=== PATIENT | male | born 1950 | race Caucasian/White ===

== ENCOUNTER 2020-08-12 09:56 | Outpatient (CLI) | payer MEDICARE, SELFPAY ==
[2020-08-12 11:12] LABS: Basophils Percent Auto 0.5 % (0.2-1.2); Eosinophils Absolute Auto 0.2 K/mm3 (0-0.3); Eosinophils Percent Auto 2.3 % (0-4.4); Hematocrit 43.4 % (42.0-52.0); Hemoglobin 14.5 g/dL (14.0-18.0); Immature Granulocyte Absolute 0.01 K/mm3 (0.00-0.031); Immature Granulocyte Percent A 0.2 % (0-0.5); Lymphocytes Absolute Auto 1.66 K/mm3 (0.9-3.2); Lymphocytes Percent Auto 25.2 % (18.3-44.2); Mean Corpuscular HGB Conc 33.4 g/dl (32-36); Mean Corpuscular Hemoglobin 31.3 pg (26-34); Mean Corpuscular Volume 93.7 fl (80-100); Mean Platelet Volume 9.1 fl (7.4-10.4); Monocytes Absolute Auto 0.4 K/mm3 (0.1-0.6); Monocytes Percent Auto 6.4 % (2.6-8.5); Neutrophils Absolute Auto 4.3 K/mm3 (1.3-6.7); Neutrophils Percent Auto 65.4 % (45.5-73.1); Platelet Count Result 269 k/mm3 (150-375); Red Blood Count 4.63 M/mm3 (4.6-6.20); Red Cell Distribution Width 12.3 % (11.5-14.5); White Blood Count 6.6 K/mm3 (4.5-10.0)
[2020-08-12 11:18] LABS: Albumin Level 4.4 g/dL (3.5-5.1); Urine Cotinine NEGATIVE
[2020-08-12 11:21] LABS: Anion Gap 9 mmol/L (8-16); Blood Urea Nitrogen 18 mg/dL (9-20); Calcium 9.8 mg/dL (8.4-10.2); Carbon Dioxide 32 mmol/L (22-30); Chloride 103 mmol/L (98-107); Estimated Glomerular Filt Rate 60; Glucose 89 mg/dL (75-110); Potassium 3.9 mmol/L (3.4-5.0); Sodium 144 mmol/L (137-145)
[2020-08-12 11:22] LABS: Hemoglobin A1C 5.1 % (<5.7)
== END 2020-08-12 09:57 | disposition home or self-care (01) ==
PROVIDERS: Anesthesiology; PCP Internal Medicine Geriatric Medicine; Visit Provider Orthopaedic Surgery
DX: M17.0 Bilateral primary osteoarthritis of knee (principal); Z79.899 Other long term (current) drug therapy; Z01.818 Encounter for other preprocedural examination
CPT/HCPCS: 36415; 80048; 80307; 82040; 83036; 85025; 86850; 86900; 86901; 87081

== ENCOUNTER 2020-08-22 00:40 | Outpatient (CLI) | payer MEDICARE, SELFPAY ==
[2020-08-22 20:27] LABS: SARS-CoV-2 RNA PCR Negative
== END 2020-08-22 00:41 | disposition home or self-care (01) ==
LOC: ANHCOVIDDT 00:40
PROVIDERS: PCP Internal Medicine Geriatric Medicine; Visit Provider Orthopaedic Surgery
DX: Z01.812 Encounter for preprocedural laboratory examination (principal); Z20.828 Contact with and (suspected) exposure to other viral communicable diseases
CPT/HCPCS: 87635; C9803; U0003

== ENCOUNTER 2020-08-25 00:54 | Day surgery (SDC) | payer MEDICARE, SELFPAY ==
[2020-08-12 10:24] VITALS: BP 162/90; PULSE 66; RESP 20; TEMP 37.2; O2SAT 98; BMI 33.3
[2020-08-25] VITALS (11 sets, daily range): BP systolic 106–167; BP diastolic 59–95; PULSE 60–85; RESP 12–20; TEMP 36.3–36.8; O2SAT 92–100
--- NOTE | ~2020-08-25 | XR_ITS ---
EXAMINATION: XR knee RT 2V DATE: 08/25/2020 10:41 INDICATION: Postoperative evaluation following right total knee arthroplasty. TECHNIQUE: Anteroposterior and lateral views of the right knee were obtained. COMPARISON: None. FINDINGS: Right total knee arthroplasty with patellar resurfacing appears well seated and in near anatomic alig nment. No fractures identified. Expected postoperative subcutaneous and intra-articular gas. IMPRESSION: 1. Right total knee arthroplasty, negative for postoperative purposes. Reviewed, dictated and finalized at location A. NOLOGY APPLICATIONS CONSULTANT
[2020-08-25] MEDS: ACETAMINOPHEN 500 MG TABLET 1000 MG PO ×3 (06:55→22:51)
[2020-08-25] MEDS: LACTATED RINGERS 1,000 ML 30 ML IV CONT ×2 (06:55→10:22)
[2020-08-25] MEDS: TRANEXAMIC ACID 1,000MG/ISO100 1,000 MG/100 ML BAG 200 MG IVPB (06:56)
[2020-08-25] MEDS: KETOROLAC 15 MG/ML VIAL (*BKC) IV PUSH ×3 (06:56→18:27)
--- NOTE | 2020-08-25 07:10 | WPDANESEPPF ---
Anes - Initial Pre Proc Eval Procedure: Operation Date: 08/25/20 07:30 Proposed Procedures p Right Total Knee Arthroplasty - Alexi Barcenas MD Date/Time: 08/25/20 07:10 Surgeon: Alexi Barcenas MD Pre Op Diagnosis: OA Right Knee Patient Data Age: 70 Gender: M Height: 1.83 m Weight: 111.3 kg Last Vital Signs Temp 37.2 C 08/12/20 10:24 Pulse 66 08/12/20 10:24 Resp 20 08/12/20 10:24 BP 162/90 H 08/12/20 10:24 Pulse Ox 98 08/12/20 10:24 Allergies Allergy/AdvReac Type Severity Reaction Status Date / Time No Known Allergies Allergy Mild Verified 08/25/20 06:20 Home Medications Medication Instructions Recorded Confirmed Type aspirin 81 mg tablet,delayed 81 mg PO DAILY 05/15/20 08/25/20 History release atorvastatin 20 mg tablet 20 mg PO DAILY 05/15/20 08/25/20 History cholecalciferol (vitamin D3) 1,250 1,250 mcg PO WEEKLY 05/15/20 08/25/20 History mcg (50,000 unit) capsule diclofenac sodium 75 mg 75 mg PO BID 05/15/20 08/25/20 History tablet,delayed release omega-3 fatty acids 1,000 mg 1,200 mg PO DAILY 05/15/20 08/25/20 History capsule lisinopril-hydrochlorothiazide 1 tablet PO DAILY 08/12/20 08/25/20 History tadalafil 20 mg PO PRN 08/12/20 08/25/20 History rivaroxaban 10 mg tablet 10 mg PO DAILY #13 tablet 08/19/20 08/19/20 Rx Patient hx anesthesia problems: none Family hx anesthesia problems: none PMFSH Past Medical History Medical History (Updated 08/25/20 @ 07:14 by Ever Rueda MD) BMI 34.0-34.9,adult Coronary artery disease Degenerative arthritis of knee, bilateral Hypercholesterolemia Hypertension Obesity Surgical History Surgical History H/O knee surgery left knee - arthroscopy - Dr. Barcenas Previous back surgery 2000 Family History Family History Mother Cancer Father Heart disease Social History Social History Smoking status: Former smoker Tobacco type: cigarettes Second hand tobacco smoke exposure: No Additional smoking assessment comments: STATES 1/2 TO 1PK/DAY/20YRS QUIT 2018 Alcohol intake: current Drinks per week: 6 Substance use: never Living arrangements: with family Gender identity (if verbalized by the patient): Male Spiritual care concerns: No Anes - Eval Final PreProcedure Day of Procedure 08/25/20 07:10 Patient weight: obese Heart: regular rate and rhythm Lungs: clear to auscultation and normal air movement Airway: Mallampati scale class II Neurological: alert and oriented Last oral intake: >/= 8 hours ASA classification: III Emergent: no Anesthetic plan: proceed Anesthesia type and monitoring: regional spinal Informed Consent: The patient's anesthetic plan and its attendant risks and benefits were discussed with the patient/family/POA. Questions were solicited and answers provided to the satisfaction of the patient/family/POA.
--- NOTE | 2020-08-25 07:13 | WPDHPUPDATE1 ---
History and Physical Update Update Date/Time: 08/25/20 07:13 History and Physical has been reviewed, including an updated exam of the patient. There are NO changes in the patient's condition. Risks, benefits, and alternatives have been discussed and questions answered. Patient agrees to proceed with procedure.
[2020-08-25] MEDS: ceFAZolin 2 GM/D5W 50 ML 2 GM/50 ML BAG IVPB ×3 (07:34→22:52)
--- NOTE | 2020-08-25 07:36 | WPDANESPNB ---
Anes - Peripheral Nerve Block Date/Time: 08/25/20 07:36 I have discussed with the patient/family/POA the placement of a peripheral nerve block for post-operative pain management, including associated risks, benefits, complications, and side effects. Alternative methods of post-operative analgesia were detailed. Questions were solicited and answers provided to the satisfaction of the patient/family/POA. Time-Out: A pre-procedural Time-Out was completed immediately before starting the procedure and confirmed: Patient Identification, Site, Procedure, Patient Position and the Availability of Requisite Equipment. Clinical Indications: Acute post-operative pain management requested by the operative surgeon. Nerve Block Insertion Note Anes-nerve block: adductor canal (30cc) right Patient position: supine Skin prep: chlorhexidine Needle: 22 gauge, stimulating, insulated echogenic needle. Needle length: 80 mm Technique: ultrasound Technique comment: in plane Injectate: bupivacaine 0.25% with epi 5 mcg/ml Observations: tolerated well Complications: none Procedure start time:: 725 Procedure end time:: 730
[2020-08-25] MEDS: GENTAMICIN BONE CEMENT REFOBACIN 1 EACH TOPICAL (09:20)
[2020-08-25] MEDS: ceFAZolin SODIUM 1 GM VIAL IV PUSH (09:29)
--- NOTE | 2020-08-25 10:17 | P.OP_ITS ---
Procedure Note - Detailed Date of procedure: 08/25/20 Pre-op diagnosis: OA Right Knee Post-op diagnosis: same Procedure performed: Right total knee replacement Description of procedure: The patient was identified and proper site identified. In the preop holding area the anesthesia team performed a right sub sartorial block after which the patient was taken to the operating room and transferred to the OR table positioning supine taking care to pad the torso and extremities. After a spinal anesthetic was administered, a nonsterile tourniquet was placed high on the right thigh. The right lower extremity was prepped and draped in the usual sterile fashion. The extremity was exsanguinated and with the knee flexed tourniquet was inflated to 300 mmHg remaining up for approximately 75 minutes. An anterior midline incision was made and a mid vastus approach was used. Infra and suprapatellar fat pads were excised. Patella was resected leaving 15 mm thickness and prepared for the 34 thin, round three peg component. Using the intramedullary guide the distal femur was cut in the proper orientation for the size 72.5 femoral component. Using the extramedullary guide the tibia was cut perpendicular to the long axis protecting collateral ligaments and popliteal structures. It was sized to a 79. Flexion and extension gaps were balanced. Trial reduction was undertaken and the weight-bearing line was noted to passed through the center of the joint. Proximal tibia was drilled and punched in the proper orientation for the real component. Trial components were removed. The bone surfaces were washed with pulsatile lavage and dried. The real components were cemented simultaneously. The knee was held in extension and the patella held clamped until the cement had cured. Excess cement was removed from the joint. After trialing it was determined that the 10 mm insert gave full range of motion from 0-120 degrees of flexion and the patella tracked in the femoral groove with no lift-off. After final lavage the joint the real 10 E poly insert was placed and secured with a locking bar. A Betadine and saline wash was placed into the wound and allowed to sit for approximately 3 minutes and then evacuated. Periarticular tissues were infiltrated with 60 cc of the arthroplasty solution. 1 g of tranexamic acid was left in the wound. The extensor mechanism was repaired with #2 Vicryl suture and 0 looped PDS suture. Subcu was reapproximated with two 0 strata fix and tissue adhesive for the skin. A sterile dressing was applied. He tolerated the procedure well, was awakened and extubated, transferred to the bed and was taken to recovery area in stable condition. There were no known intraoperative complications. Perioperative antibiotics were administered. Anesthesia: regional and spinal Surgeon: Alexi Barcenas MD Supervisor [employer]: Merline Baltazar Estimated blood loss (mL): 150 Tourniquet time (min): 75 Drains: No Packing: No Pathology: none sent Complications: No immediate complications Condition: stable Disposition: PACU
--- NOTE | 2020-08-25 10:39 | SUR.PHASEI ---
1039 ap/lat xrays done at bedside by radiology
--- NOTE | 2020-08-25 11:04 | SUR.PHASEI ---
[id number] sbar faxed floor notified
[2020-08-25] MEDS: oxyCODONE HCL (*CRX) 5 MG TAB IR PO ×3 (12:37→20:44)
--- NOTE | 2020-08-25 13:20 | ADMGEN ---
This patient, Blaise Marquis, was admitted to Medical Room 258-01. Patient/family oriented to hospital policies and general routines including ID bracelet, bed and alarms, visiting hours, pain management, procedures, bathroom and other care routines, personal items, smoking policy, room service/diet, and visiting hours. Information on how to activate the Rapid Response Team has been discussed. Patient/Family are encouraged to report perceived risks to care and to ask questions if they do not understand what they are told or what they should do.
[2020-08-25] MEDS: DOCUSATE SODIUM 100 MG CAPSULE PO (18:27)
[2020-08-25] MEDS: FAMOTIDINE 20 MG TABLET PO (20:44)
[2020-08-26] MEDS: oxyCODONE HCL (*CRX) 5 MG TAB IR PO ×3 (00:49→08:19)
[2020-08-26] MEDS: KETOROLAC 15 MG/ML VIAL (*BKC) IV PUSH (00:49)
[2020-08-26 01:15] VITALS: BP 140/78; PULSE 87; RESP 20; TEMP 37; O2SAT 99
[2020-08-26 05:15] VITALS: BP 136/73; PULSE 73; RESP 18; TEMP 36.8; O2SAT 96
[2020-08-26] MEDS: ACETAMINOPHEN 500 MG TABLET 1000 MG PO (06:44)
[2020-08-26] MEDS: ceFAZolin 2 GM/D5W 50 ML 2 GM/50 ML BAG IVPB (06:45)
--- NOTE | 2020-08-26 06:55 | PM.PNORT ---
Progress Note: A&P Assessment and Plan (1) Status post right knee replacement: Code(s): Z96.651 - Presence of right artificial knee joint Status: Acute Assessment and Plan: 62-year-old male postop day one right knee replacement and doing very well. Surgery was discussed instructions reviewed. He will be discharged home today. He will follow up with me in approximately two weeks. Subjective Subjective Date/Time Seen: 08/26/20 06:55 Post Op day: 1 Principal diagnosis: Status post right total knee replacement Interval history: 62-year-old male postop day one right total knee replacement and doing very well. No issues overnight. Review of Systems Review of Systems: All systems reviewed & are unremarkable except as noted in HPI and below Exam Const: General: cooperative, no acute distress and alert Nutritional Appearance: other Orientation/consciousness: patient oriented x3 Limitations: no limitations HENMT: Head: normal to inspection Ears: hearing grossly normal bilaterally Face and sinus: face symmetric Mouth: Yes moist mucous membranes Teeth and gingiva: fair dentition Eyes: Alignment and Position: alignment normal and position normal Sclera: sclerae normal Neck: Neck: normal visual inspection and nontender Chest: Chest palpation & inspection: normal inspection of the chest Resp: Effort & Inspection: normal respiratory effort and able to speak in complete sentences GI: Inspection: other ( Nondistended, nontender) Skin: General skin exam: normal color Rashes: no rashes Neuro: General: patient oriented x3 Cognition (Neuro): normal cognition Speech: normal speech Gait exam (Neuro): Other gait observations present Motor exam (neuro): 5/5 motor strength present throughout Sensory Exam: normal sensation Extrem: General: normal to inspection and other Other: Exam of the right knee shows very little swelling. Range of motion this morning is 0-115 degrees of flexion. He is able to do a straight leg raise. Incision well opposed and dry. Calves negative. Psych: Appearance: grossly normal Mental Status: mental status grossly normal Radiology Reports: Comments: EXAMINATION: XR knee RT 2V DATE: 08/25/2020 10:41 INDICATION: Postoperative evaluation following right total knee arthroplasty. TECHNIQUE: Anteroposterior and lateral views of the right knee were obtained. COMPARISON: None. FINDINGS: Right total knee arthroplasty with patellar resurfacing appears well seated and in near anatomic alignment. No fractures identified. Expected postoperative subcutaneous and intra-articular gas. IMPRESSION: 1. Right total knee arthroplasty, negative for postoperative purposes. Objective Data Vital Signs Vital Signs: Vital Signs - 24 hr 08/25/20 07:13 08/25/20 10:25 08/25/20 10:40 Temperature 97.4 F L 98.3 F Pulse Rate 75 77 72 Respiratory Rate 16 12 16 Blood Pressure 167/95 H 138/76 130/86 Pulse Oximetry 100 98 92 08/25/20 10:55 08/25/20 11:09 08/25/20 11:25 Temperature Pulse Rate 69 60 71 Respiratory Rate 16 12 18 Blood Pressure 131/87 138/90 131/92 H Pulse Oximetry 95 95 96 08/25/20 11:45 08/25/20 12:00 08/25/20 12:30 Temperature 97.3 F L 97.4 F L 97.4 F L Pulse Rate 69 67 70 Respiratory Rate 18 16 18 Blood Pressure 130/75 134/73 128/81 Pulse Oximetry 98 97 97 08/25/20 13:30 08/25/20 22:00 08/26/20 01:15 Temperature 97.4 F L 98.0 F 98.6 F Pulse Rate 80 85 87 Respiratory Rate 18 20 20 Blood Pressure 150/78 H 106/59 L 140/78 Pulse Oximetry 96 98 99 Intake/Output Intake/Output: Intake & Output 08/23/20 08/24/20 08/25/20 08/26/20 23:59 23:59 23:59 23:59 Intake Total 930 / 930 Balance 930 / 930 Meds/Results Medications: Active Medications Generic Name Dose Route Start Last Admin Trade Name Freq PRN Reason Stop Dose Admin Acetaminophen 1,000 mg 08/25/20 15:00 08/26/20 06:44 Acetaminophen 500 Mg Tablet PO 1,000 mg Q8H SC
--- NOTE | 2020-08-26 06:58 | PM.DS ---
DS: Admitting Diagnosis Admitting Diagnosis Admitting Diagnosis: OA Right Knee DS: Discharge Diagnosis Discharge Diagnosis (1) Status post right knee replacement: Code(s): Z96.651 - Presence of right artificial knee joint Status: Acute Assessment and Plan: Plan discharge today after physical therapy. DS: Summary Hospital Course Reason for hospitalization: Postop pain control and to initiate therapy status post right knee replacement. Hospital Course: Following the patient's surgery, he was admitted to the floor. He made excellent progress is going to be discharged home today. Status at Discharge Functional status at discharge: uses cane/walker Overall status at discharge: patient is not back to baseline Time Spent with Patient Time attestation: Total time spent providing and/or coordinating discharge services: Exam Const: General: cooperative, no acute distress and alert Nutritional Appearance: other Orientation/consciousness: patient oriented x3 Limitations: no limitations HENMT: Head: normal to inspection Ears: hearing grossly normal bilaterally Face and sinus: face symmetric Mouth: Yes moist mucous membranes Teeth and gingiva: fair dentition Eyes: Alignment and Position: alignment normal and position normal Sclera: sclerae normal Neck: Neck: normal visual inspection and nontender Chest: Chest palpation & inspection: normal inspection of the chest Resp: Effort & Inspection: normal respiratory effort and able to speak in complete sentences GI: Inspection: other ( Nondistended, nontender) Skin: General skin exam: normal color Rashes: no rashes Neuro: General: patient oriented x3 Cognition (Neuro): normal cognition Speech: normal speech Gait exam (Neuro): Other gait observations present Motor exam (neuro): 5/5 motor strength present throughout Sensory Exam: normal sensation Extrem: General: normal to inspection and other Other: Exam of the right knee shows very little swelling. Range of motion this morning is 0-115 degrees of flexion. He is able to do a straight leg raise. Incision well opposed and dry. Calves negative. Psych: Appearance: grossly normal Mental Status: mental status grossly normal Discharge Plan Discharge Patient Disposition: Home, Self-Care Discharge Instructions: 3 times daily for 20 minutes each time, reclining in bed with ice packs over the incision and a pillow underneath the affected calf. Your wound is glued so it is okay to get into the shower and get the wound wet. Be sure to read through all the information that came from a my office and the hospital. Most of the answer was you will need can be found that material. Call the office with any questions that you cannot find answers to, or concerns you may have. After the Xarelto is completed, start taking one coated 81 mg aspirin daily. Please call [facility] at as soon as possible to Verify your follow-up appointment to be seen in two weeks. Also, call the office with any orthopedic/surgical related questions prior to follow-up. Be sure to get up and move around several times daily but do not overdo it . Please use the arthritis formula Tylenol for at least one week. You can take the prescribed pain medication along with the Tylenol. Just follow the prescription instructions. Patient Instructions: Precautions after Total Joint Replacement Surgery (DC), Knee Replacement (DC) Discharge Medications: New oxycodone 5 mg Tablet 5 mg PO Q4HR PRN (Reason: pain) Qty: 40 RF: 0 Continued atorvastatin 20 mg tablet 20 mg PO DAILY RF: 0 omega-3 fatty acids [Fish Oil Concentrate] 1,000 mg capsule 1,200 mg PO DAILY RF: 0 cholecalciferol (vitamin D3) 1,250 mcg (50,000 unit) capsule 1,250 mcg PO WEEKLY RF: 0 Xarelto 10 mg tablet 10 mg PO DAILY Qty: 13 RF: 0 lisinopril-hydrochlorothiazide 20-25 mg Tablet 1 tablet PO DAILY RF: 0 tadalafil 20 m
--- NOTE | 2020-08-26 07:02 | WPDANESPN ---
Anes - Prog Note Post-Op Date/Time: 08/26/20 07:02 Cardiovascular status: normal Respiratory status: normal Airway patency: baseline Mental status: baseline Post-Op hydration status: normal Vital Signs: Last Vital Signs Temp 37.0 C 08/26/20 01:15 Pulse 87 08/26/20 01:15 Resp 20 08/26/20 01:15 BP 140/78 08/26/20 01:15 Pulse Ox 99 08/26/20 01:15 Pain Score (VAS): 2 I/O: Intake & Output 08/25/20 08/25/20 08/26/20 15:59 23:59 07:59 Intake Total 640 290 Balance 640 290 Post-procedural complaints: none Patient Feedback: Patient satisfied with anesthetic care.
[2020-08-26] MEDS: lisinopriL 20 MG TABLET PO (08:18)
[2020-08-26] MEDS: ATORVASTATIN 20 MG TABLET PO (08:18)
[2020-08-26] MEDS: FAMOTIDINE 20 MG TABLET PO (08:19)
[2020-08-26] MEDS: hydroCHLOROthiazide 25 MG TABLET PO (08:19)
[2020-08-26] MEDS: DOCUSATE SODIUM 100 MG CAPSULE PO (08:19)
[2020-08-26] MEDS: RIVAROXABAN 10 MG TABLET PO (08:19)
== END 2020-08-26 08:25 | disposition home or self-care (01) ==
LOC: ANHSURGERY 06:10 → ANH2MED 11:57
PROVIDERS: PCP Internal Medicine Geriatric Medicine; Visit Provider Orthopaedic Surgery
PROC: (CPT 27447; principal; 2020-08-25 07:30)
DX: M17.11 Unilateral primary osteoarthritis, right knee (principal); G89.18 Other acute postprocedural pain; I10 Essential (primary) hypertension; E78.00 Pure hypercholesterolemia, unspecified; I25.10 Atherosclerotic heart disease of native coronary artery without angina pectoris; E66.9 Obesity, unspecified; Z68.33 Body mass index [BMI] 33.0-33.9, adult; Z79.82 Long term (current) use of aspirin; Z79.899 Other long term (current) drug therapy; Z87.891 Personal history of nicotine dependence
CPT/HCPCS: 27447; 64447; 73560; 97110; 97116; 97161; 97165; A9270; C1713; C1776; J0690; J1100; J1885; J2250; J2405; J2704; J3010; J7120

== ENCOUNTER 2020-10-01 08:30 | Outpatient (RCR) | payer MEDICARE, SELFPAY ==
--- NOTE | 2020-09-01 08:58 | PTOPEVAL ---
Thank you for referring Blaise Marquis to [facility].? The patient is scheduled to be seen for therapy? 2-3 x/week for 8 weeks. Please review, sign, date and return this plan of care QUYEN. I agree with and certify that the following plan of care is medically necessary. Referring Physician Date Attending Provider: Alexi Barcenas MD Referring Provider: *PT Outpatient Evaluation Start: 09/01/20 07:49 Freq: Status: Active Protocol: Document 09/01/20 07:52 ALEX (Rec: 09/01/20 08:53 ALEX [id number]) Therapy Assessment Status Assessment Status Assessment Status Evaluation Outpatient Past Medical History Past Medical History Source of Past Medical History Patient,Recalled from Previous Visit, Confirmed with Patient /Family Neurological History Hx Neurological Disorders No Significant History Cardiovascular History Hx Cardiac Catheterization Yes: 08/11/20 Hx Hypercholesterolemia Yes Hx Hypertension Yes Hx Other Cardiac Disorders Yes: DENIES CARDIAC SYMPTOMS, WALKS 1 MILE DAILY. 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 Respiratory History Hx Sleep Apnea Yes: DENTAL APPLIANCE Gastrointestinal History Hx Gastroesophageal Reflux Disease Yes: OCCASIONAL Genitourinary History Hx Genitourinary Disorders No Significant History Musculoskeletal History Hx Arthritis Yes: KNEES Hx Joint Replacement Yes: Right TKR 08/25/20 Hx Orthopedic Surgery Yes: RT & LT ARTHOSCOPY Hx Spinal Surgery Yes: L5 2000 Hematological History Hx Hematological Disorders No Significant History Endocrine History Hx Endocrine Disorders No Significant History HEENT History Hx Tonsillectomy Yes Hx Other HEENT Disorders Yes: GLASSES Integumentary History Hx Skin Disorders No Significant History Reproductive History Hx Other Reproductive Disorders Yes: ERECTILE DYSFUNSTION Psychosocial History Hx Psychiatric Disorders No Significant History Pain History History of Any Previous or Ongoing No Significant History Instance of Pain Anesthesia History Hx Anesthesia Reactions No Significant History Evaluation Information Problem Diagnosis OA right knee with TKR Onset 08/25/20 Subjective Information Reports increased right knee Query Text:As Reported By Patient/ pain today after increased Family walking yesterday. He has increased pain with walking, sitting, standing, and bending the knee. He has difficulty squating, donning/doffing
--- NOTE | 2020-09-04 07:43 | PCPTNOTE ---
Patient called & cancelled scheduled appointment this date due to being sick.
--- NOTE | 2020-10-01 11:43 | PTOPEVAL ---
Thank you for referring Blaise Marquis to [facility].? Pt has received 12 therapy visits to address his impairments related to his TKR. He has reached maximal potential with skilled therapy services at this time with goals met. DC skilled PT services with pt to cont with his HEP. Please review, sign, date and return this plan of care QUYEN. I agree with and certify that the following plan of care is medically necessary. Referring Physician Date Attending Provider: Alexi Barcenas MD Referring Provider: *PT Outpatient Evaluation Start: 09/01/20 07:49 Freq: Status: Active Protocol: Document 10/01/20 08:32 ALEX (Rec: 10/01/20 09:21 CAP [id number]) Therapy Assessment Status Assessment Status Assessment Status Re-evaluation/Discharge Note Outpatient Past Medical History Past Medical History Source of Past Medical History Patient,Recalled from Previous Visit, Confirmed with Patient /Family Neurological History Hx Neurological Disorders No Significant History Cardiovascular History Hx Cardiac Catheterization Yes: 08/11/20 Hx Hypercholesterolemia Yes Hx Hypertension Yes Hx Other Cardiac Disorders Yes: DENIES CARDIAC SYMPTOMS, WALKS [address] 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 Respiratory History Hx Sleep Apnea Yes: DENTAL APPLIANCE Gastrointestinal History Hx Gastroesophageal Reflux Disease Yes: OCCASIONAL Genitourinary History Hx Genitourinary Disorders No Significant History Musculoskeletal History Hx Arthritis Yes: KNEES Hx Joint Replacement Yes: Right TKR 08/25/20 Hx Orthopedic Surgery Yes: RT & LT ARTHOSCOPY Hx Spinal Surgery Yes: L5 2000 Hematological History Hx Hematological Disorders No Significant History Endocrine History Hx Endocrine Disorders No Significant History HEENT History Hx Tonsillectomy Yes Hx Other HEENT Disorders Yes: GLASSES Integumentary History Hx Skin Disorders No Significant History Reproductive History Hx Other Reproductive Disorders Yes: ERECTILE DYSFUNSTION Psychosocial History Hx Psychiatric Disorders No Significant History Pain History History of Any Previous or Ongoing No Significant History Instance of Pain Anesthesia History Hx Anesthesia Reactions No Significant History Evaluation Information Problem Diagnosis OA right knee with TKR Onset 08/25/20 Subjective Information He cont to have some soreness Query Text:As Reported By Patient/ and swelling of the knee. He Family is riding the bike for 20' at home and performing his exercise.
== END 2020-10-01 14:15 | disposition home or self-care (01) ==
LOC: ANHPT 08:30
PROVIDERS: PCP Internal Medicine Geriatric Medicine; Visit Provider Orthopaedic Surgery
DX: M17.11 Unilateral primary osteoarthritis, right knee (principal); Z96.659 Presence of unspecified artificial knee joint
CPT/HCPCS: 97014; 97110; 97112; 97140; 97162; 97530; G0283

== ENCOUNTER 2024-03-16 08:56 | Emergency (ER) | payer MEDICARE, SELFPAY ==
[2024-03-16] VITALS (8 sets, daily range): BP systolic 136–185; BP diastolic 82–98; PULSE 89–119; RESP 17–30; TEMP 36.5–37.5; O2SAT 92–99
--- NOTE | ~2024-03-16 | XR_ITS ---
EXAMINATION: XR chest 2V DATE: 03/16/2024 09:44 INDICATION: Fever. TECHNIQUE: Frontal and lateral views of the chest were obtained. COMPARISON: Chest 2 views 09/23/2005 FINDINGS: There is no pneumonia, pleural effusion, or pneumothorax. The heart size is normal. There a re changes of anterior fusion procedure in cervical spine. IMPRESSION: 1. No acute cardiopulmonary disease. Reviewed, dictated and finalized at location A.
[2024-03-16 09:34] LABS: Basophils Percent Auto 0.3 % (0.2-1.2); Hemoglobin 14.1 g/dL (14.0-18.0); Immature Granulocyte Absolute 0.01 K/mm3 (0.00-0.031); Immature Granulocyte Percent A 0.1 % (0-0.5); Lymphocytes Absolute Auto 0.28 K/mm3 (0.9-3.2); Lymphocytes Percent Auto 3.8 % (18.3-44.2); Mean Corpuscular HGB Conc 33.6 g/dl (32-36); Mean Corpuscular Hemoglobin 30.6 pg (26-34); Mean Corpuscular Volume 91.1 fl (80-100); Mean Platelet Volume 9.2 fl (7.4-10.4); Monocytes Absolute Auto 0.4 K/mm3 (0.1-0.6); Monocytes Percent Auto 4.7 % (2.6-8.5); Neutrophils Absolute Auto 6.8 K/mm3 (1.3-6.7); Neutrophils Percent Auto 91.1 % (45.5-73.1); Platelet Count Result 175 k/mm3 (150-375); Red Blood Count 4.61 M/mm3 (4.6-6.20); Red Cell Distribution Width 13.2 % (11.5-14.5); White Blood Count 7.4 K/mm3 (4.5-10.0)
[2024-03-16 09:41] LABS: Lactic Acid Reflex 0.8 mmol/L (0.7-2.0)
[2024-03-16 09:42] LABS: INR 1.4; Prothrombin Time 18.2 Seconds (11.1-14.7)
[2024-03-16 09:43] LABS: Alanine Aminotransferase 16 U/L (6-50); Albumin Level 4.3 g/dL (3.5-5.1); Alkaline Phosphatase 83 U/L (38-126); Anion Gap 8 mmol/L (4-12); Aspartate Amino Transferase 23 U/L (17-59); Bilirubin,Total 2.9 mg/dL (0.2-1.3); Blood Urea Nitrogen 15 mg/dL (9-20); Calcium 9.1 mg/dL (8.4-10.2); Carbon Dioxide 24 mmol/L (22-30); Chloride 105 mmol/L (98-107); Estimated CRCL calculation 72 ml/min; Estimated Glomerular Filt Rate > 60; Glucose 127 mg/dL (65-110); Partial Thromboplastin Time 32.8 Seconds (22.3-36.8); Potassium 3.4 mmol/L (3.4-5.0); Sodium 137 mmol/L (137-145)
--- NOTE | 2024-03-16 10:20 | ED.FEVER ---
HPI - Fever General Chief Complaint: Fever Stated Complaint: fever Time Seen by Provider: 03/16/24 09:14 Source: patient Mode of arrival: ambulatory Limitations: no limitations History of Present Illness HPI Narrative: This is a 73-year-old male that presents to the emergency department for fevers. Ongoing since last night. Reports some associated chills. He has been taking Tylenol with relief. He had a prostate biopsy on Tuesday. He called his urologist and was prompted to be seen in the ER. No other associated symptoms. Denies cough, chest pain, shortness of breath, abdominal pain, vomiting, or dysuria. Does report some hematuria which his urologist told him was normal postop. Related Data Home Medications Medication Instructions Recorded Confirmed aspirin 81 mg tablet,delayed 81 mg PO DAILY 05/15/20 08/18/23 release (Adult Low Dose Aspirin) atorvastatin 20 mg tablet 20 mg PO DAILY 05/15/20 08/18/23 cholecalciferol (vitamin D3) 1,250 1,250 mcg PO WEEKLY 05/15/20 08/18/23 mcg (50,000 unit) capsule omega-3 fatty acids 1,000 mg 1,200 mg PO DAILY 05/15/20 08/18/23 capsule (Fish Oil Concentrate) lisinopril 20 1 tablet PO DAILY 08/12/20 08/18/23 mg-hydrochlorothiazide 25 mg tablet tadalafil 20 mg tablet 20 mg PO PRN ED 08/12/20 08/18/23 acetaminophen 650 mg 650 mg PO Q8H PRN 08/18/23 08/18/23 tablet,extended release (Tylenol Arthritis Pain) Allergies Allergy/AdvReac Type Severity Reaction Status Date / Time No Known Allergies Allergy Mild Verified 03/16/24 08:58 Review of Systems Review of Systems: CONSTITUTIONAL: Reports fever, chills ENT: Denies rhinorrhea, congestion, sore throat CARDIOVASCULAR: Denies chest pain, or edema. RESPIRATORY: Denies cough or dyspnea. GASTROINTESTINAL: Denies abdominal pain, nausea, vomiting GENITOURINARY: Reports hematuria. Denies dysuria All systems reviewed & are unremarkable except as noted in HPI and below PMFSH Past Medical History Medical History Arthritis of knee, left BMI 32.0-32.9,adult BMI 34.0-34.9,adult Coronary artery disease Hypercholesterolemia Hypertension Obesity Surgical History Surgical History H/O knee surgery left knee - arthroscopy - Dr. Barcenas Previous back surgery 2000 Status post right knee replacement August 2020 Family History Family History Mother Cancer Father Heart disease Social History Social History Smoking packs per day: 1 Smoking cigarettes per day: 20.0 Years smoked: 20 Smoking pack-years: 20.00 Smoking status: Former smoker Tobacco type: cigarettes Second hand tobacco smoke exposure: No Additional smoking assessment comments: STATES 1/2 TO 1PK/DAY/20YRS QUIT 2017 Alcohol intake: current Drinks per week: 3 Alcohol use details: occasional Substance use: never Substance use type: does not use Lack of Transportation: No Lack of Food: Never True Concerned About Future Housing: Decline to Answer Difficulty Paying Gas/Electric Bills: Decline to Answer Difficulty Paying for Meds: No Currently Unemployed: No Education: Associate Degree Difficulty w/ Childcare or Family Care: Decline to Answer Living arrangements: with family Occupation/Education: retired Gender identity (if verbalized by the patient): Male Spiritual care concerns: No Exam Narrative: GENERAL: Well-appearing, well-nourished, and in no acute distress. HEAD: Normocephalic, atraumatic. EYES: EOMI. ENT: Nares clear, no rhinorrhea or epistaxis. Mucous membranes moist. Oropharynx without tonsillar hypertrophy exudate or other lesions. NECK: Supple. No adenopathy or masses. CHEST: Clear to auscultation. No respiratory distress. No wheezes rales or rhonchi HEART: Regular rat
[2024-03-16 10:31] LABS: Lipase 27 U/L (23-300)
[2024-03-16] MEDS: SODIUM CHLORIDE 0.9% IV 500 ML 999 ML IV CONT ×2 (10:33→11:45)
[2024-03-16 10:35] LABS: Influenza A QL RT-PCR Negative (Negative); Influenza B QL RT-PCR Negative (Negative); RSV RNA, RT-PCR Negative (Negative); SARS-CoV-2 RNA PCR Negative (Negative)
[2024-03-16 10:37] LABS: Bacteria Urine None Seen /hpf; Mucus Urine Present /lpf; RBC Urine >100 /hpf (0-2); Squamous Epithelial Cell Urine None Seen /hpf (Few); WBC Urine 21-50 /hpf (0-3)
[2024-03-16 10:41] LABS: Appearance Urine Cloudy (Clear); Bilirubin Urine 2+ (Negative); Blood Urine 3+ (Negative); Glucose Urine UA Negative (Negative); Ketones Urine Trace mg/dL (Negative); Leukocyte Esterase Ur 1+ LEU/UL (Negative); Nitrate Urine Negative (Negative); Protein Urine 2+ mg/dL (Negative); pH Urine 5.5 (5.0-9.0)
[2024-03-16 10:43] LABS: Add Urine Microscopic? YES; Color Urine Dark Yellow (Yellow); Specific Grav Ur 1.036 (1.001-1.035)
== END 2024-03-16 12:00 | disposition home or self-care (01) ==
PROVIDERS: Family Medicine; Emergency Provider Physician Assistant; PCP Internal Medicine Geriatric Medicine
DX: N39.0 Urinary tract infection, site not specified (principal); I10 Essential (primary) hypertension; E78.00 Pure hypercholesterolemia, unspecified; I25.10 Atherosclerotic heart disease of native coronary artery without angina pectoris; E66.9 Obesity, unspecified; Z68.30 Body mass index [BMI] 30.0-30.9, adult; Z87.891 Personal history of nicotine dependence; Z79.82 Long term (current) use of aspirin; Z20.822 Contact with and (suspected) exposure to COVID-19
CPT/HCPCS: 36415; 71046; 80053; 81001; 83605; 83690; 85025; 85610; 85730; 87040; 87086; 87637; 96365; 99284; J0696; J7040

== ENCOUNTER 2024-10-08 15:15 | Emergency (ER) | payer MEDICARE, SELFPAY ==
--- NOTE | ~2024-10-08 | XR_ITS ---
EXAMINATION: XR foot RT min 3V DATE: 10/08/2024 15:49 INDICATION: Pain at the heel and ball of the right foot post fall TECHNIQUE: Dorsoplantar, oblique and lateral views of the right foot were obtained. COMPARISON: None. FINDINGS: Bone alignment is normal. No fracture. Mild osteoarthritis greatest at the first metatarsophalangeal and to lesser degree at a few tarsometatarsal and interphalangeal joints. Small Achilles calcaneal sp ur. Amorphous calcification at the medial side of the head of the first metatarsal which given locati on suggests possibility of tophaceous gout. No definitive erosions identified. IMPRESSION: 1. No acute osseous abnormality. 2. Amorphous calcification medial to the head of the first metatarsal suspicious for tophaceous gout. Reviewed, dictated and finalized at location B. [facility] IMPRESSION: 1. No acute osseous abnormality. 2. Amorphous calcification medial to the head of the first metatarsal suspiciou s for tophaceous gout.
[2024-10-08 15:20] VITALS: BP 150/100; PULSE 99; RESP 18; TEMP 36.3; O2SAT 99
--- NOTE | 2024-10-08 15:32 | ED_ITS ---
HPI - Extremity Injury (Lower) General Chief Complaint: Extremity Injury, Lower <Milagro Stafford APRN - Last Filed: 10/08/24 15:35> Stated Complaint: right foot injury <Milagro Stafford APRN - Last Filed: 10/08/24 15:35> Time Seen by Provider: 10/08/24 15:25 <Milagro Stafford APRN - Last Filed: 10/08/24 15:35> Focused HPI: patient is a 74-year-old male who presents to the ER with right foot pain. He reports he had back surgery 3 weeks ago which led to right leg and foot numbness. Patient has been walking with a walker since then. On Tuesday evening he tried to walk without his walker, lost his balance and fell. Patient fell onto his right foot and reports the ball of my foot is swollen. He endorses significant pain with flexion, extension, rotation, and manipulation. Patient is able to wiggle all 5 of the digits on his right foot and he has full range of motion in his right ankle. He denies any shortness of breath, chest pain, fevers, one-sided weakness /numbness / tingling. GENERAL: Well-appearing, well-nourished, and in no acute distress. HEAD: Normocephalic, atraumatic. CHEST: Clear to auscultation. ?No respiratory distress. HEART: Regular rate and rhythm.? NEURO: ?Alert and oriented x3. Patient screened in triage and initial orders placed.? ?Additional care and disposition to be based upon?diagnostic testing and treatment. <Milagro Stafford APRN - Last Filed: 10/08/24 15:35> History of Present Illness HPI Narrative: Agree with above <Ilda Jackson MD - Last Filed: 10/08/24 18:15> Related Data Home Medications: Home Medications ?Medication ?Instructions ?Recorded ?Confirmed ?Last Taken ?Type aspirin 81 mg tablet,delayed 81 mg PO DAILY 05/15/20 08/18/23 08/25/20 05:30 History release (Adult Low Dose Aspirin) atorvastatin 20 mg tablet 20 mg PO DAILY 05/15/20 08/18/23 08/25/20 05:30 History cholecalciferol (vitamin D3) 1,250 1,250 mcg PO WEEKLY 05/15/20 08/18/23 08/20/20 History mcg (50,000 unit) capsule omega-3 fatty acids 1,000 mg 1,200 mg PO DAILY 05/15/20 08/18/23 08/20/20 History capsule (Fish Oil Concentrate) lisinopril 20 1 tablet PO DAILY 08/12/20 08/18/23 08/25/20 05:30 History mg-hydrochlorothiazide 25 mg tablet tadalafil 20 mg tablet 20 mg PO PRN ED 08/12/20 08/18/23 Unknown History acetaminophen 650 mg 650 mg PO Q8H PRN 08/18/23 08/18/23 Unknown History tablet,extended release (Tylenol Arthritis Pain) <Milagro Stafford APRN - Last Filed: 10/08/24 15:35> Allergies/Adverse Reactions: Allergies Allergy/AdvReac Type Severity Reaction Status Date / Time No Known Allergies Allergy Mild Verified 03/16/24 08:58 <Milagro Stafford APRN - Last Filed: 10/08/24 15:35> Review of Systems Review of Systems: All systems reviewed & are unremarkable except as noted in HPI and below <Ilda Jackson MD - Last Filed: 10/08/24 18:15> [facility] Past Medical History Medical History: Medical History Arthritis of knee, left BMI 32.0-32.9,adult Obesity Hypercholesterolemia BMI 34.0-34.9,adult Hypertension Coronary artery disease <Milagro Stafford APRN - Last Filed: 10/08/24 15:35> Surgical History Surgical History: Surgical History Status post right knee replacement August 2020 H/O knee surgery left knee - arthroscopy - Dr. Barcenas Previous back surgery 2000 <Milagro Stafford APRN - Last Filed: 10/08/24 15:35> Family History Family History: Family History Mother Cancer Father Heart disease <Milagro Stafford APRN - Last Filed: 10/08/24 15:35> Social History Social History: Social History Smoking packs per day: 1 Smoking cigarettes per day: 20.0 Years smoked: 20 Smoking pack-years: 20.00 Smoking status: Former smoker Tobacco type: cigarettes Second hand tobacco smoke exposure: No Additional smoking assessment comments: STATES 1/2 TO 1PK/DAY/20YRS QUIT 2018 Alcohol intake: current Drinks per week: 3 Alcohol use details: occasional Substance use: never Substance use type: does not use Lack of Transportation: No Lack of Food: Never True Concerned About Future Housing: Decline to Answer Difficulty Paying Gas/Electric Bills: Decline to Answer Difficulty Paying for Meds: No Currently Unemployed: No Education: Associate Degree Difficulty w/ Childcare or Family Care: Decline to Answer Living arrangements: with family Occupation/Education: retired Gender identity (if verbalized by the patient): Male Spiritual care concerns: No <Milagro Stafford APRN - Last Filed: 10/08/24 15:35> Exam Narrative: GENERAL: Well-appearing, no acute distress, pleasant cooperative HEAD: Normocephalic, atraumatic. EYES: PERRLA and EOMI. ENT: grossly unremarkable NECK: Supple. CHEST: No respiratory distress. HEART: Regular rate and rhythm EXTREMITIES: R foot diffusely swollen, neurovascularly intact SKIN: Warm, dry, no rash. NEURO: No focal deficits. Alert and oriented x3. PSYCH: Normal mood and affect. <Ilda Jackson MD - Last Filed: 10/08/24 18:15> Course Vital Signs Vital signs: Vital Signs Temperature 97.3 F L 10/08/24 15:20 Pulse Rate 99 10/08/24 15:20 Respiratory Rate 18 10/08/24 15:20 Blood Pressure 150/100 H 10/08/24 15:20 Pulse Oximetry 99 10/08/24 15:20 Temperature 97.3 F L 10/08/24 15:20 Pulse Rate 99 10/08/24 15:20 Respiratory Rate 18 10/08/24 15:20 Blood Pressure 150/100 H 10/08/24 15:20 Pulse Oximetry 99 10/08/24 15:20 <Milagro Stafford, PROGRAM SUPPORT SPECIALIST - Last Filed: 10/08/24 15:35> Vital Signs Temperature 97.3 F L 10/08/24 15:20 Pulse Rate 99 10/08/24 15:20 Respiratory Rate 18 10/08/24 15:20 Blood Pressure 150/100 H 10/08/24 15:20 Pulse Oximetry 99 10/08/24 15:20 Temperature 97.3 F L 10/08/24 15:20 Pulse Rate 99 10/08/24 15:20 Respiratory Rate 18 10/08/24 15:20 Blood Pressure 150/100 H 10/08/24 15:20 Pulse Oximetry 99 10/08/24 15:20 <Ilda Jackson MD - Last Filed: 10/08/24 18:15> MDM - Extremity Injury (Lower) MDM Narrative Medical decision making narrative: 74-year-old male presenting with right foot pain after a fall a couple days ago. Vitals within normal limits. Exam remarkable for the above. X-ray shows no acute osseous abnormalities. Discussed appropriate supportive care and return precautions. Recommend PCP follow-up. Patient is agreeable this plan. Discharged in stable condition. <Ilda Jackson MD - Last Filed: 10/08/24 18:15> Imaging Data Radiologist's impression: ITS Impressions Foot X-Ray 10/08/24 15:56 IMPRESSION: 1. No acute osseous abnormality. 2. Amorphous calcification medial to the head of the first metatarsal suspicious for tophaceous gout. <Ilda Jackson MD - Last Filed: 10/08/24 18:15> Critical Care Time Critical Care Time Critical Care Time: No <Ilda Jackson MD - Last Filed: 10/08/24 18:15> Discharge Plan Discharge Clinical Impression: Right foot strain <Milagro Stafford APRN - Last Filed: 10/08/24 15:35> Patient Disposition: Home, Self-Care <Milagro Stafford APRN - Last Filed: 10/08/24 15:35> Condition: Stable <Milagro Stafford APRN - Last Filed: 10/08/24 15:35> Instructions: Antibiotic Form, Foot Sprain (ED) <Milagro Stafford APRN - Last Filed: 10/08/24 15:35> Additional Instructions: the x-ray today shows no broken bones. Please use Tylenol and ibuprofen for pain control. Rest, apply ice, and elevate the foot as much as possible. You may apply compression stockings as needed. Follow-up with your PCP. If your symptoms worsen or other concerning symptoms arise, please return to the ER. <Milagro Stafford APRN - Last Filed: 10/08/24 15:35> Patient Language: Senegalese <Milagro Stafford APRN - Last Filed: 10/08/24 15:35> Prescriptions: No Action atorvastatin 20 mg tablet 20 mg PO DAILY omega-3 fatty acids [Fish Oil Concentrate] 1,000 mg capsule 1,200 mg PO DAILY cholecalciferol (vitamin D3) 1,250 mcg (50,000 unit) capsule 1,250 mcg PO WEEKLY Patient Comments: STATES TAKES ON TUESDAY aspirin [Adult Low Dose Aspirin] 81 mg tablet,delayed release (DR/EC) 81 mg PO DAILY acetaminophen [Tylenol Arthritis Pain] 650 mg tablet extended release 650 mg PO Q8H PRN cefdinir 300 mg capsule 300 mg PO Q12H 14 Days Qty: 28 0RF lisinopril-hydrochlorothiazide 20-25 mg Tablet 1 tablet PO DAILY tadalafil 20 mg Tablet 20 mg PO PRN <Milagro Stafford APRN - Last Filed: 10/08/24 15:35> Follow-up/Referrals: Ricky,Albert Franklin MD [Primary Care Provider] - <Milagro Stafford APRN - Last Filed: 10/08/24 15:35>
[2024-10-08 18:27] VITALS: BP 147/99; PULSE 88; RESP 16; O2SAT 98
== END 2024-10-08 18:32 | disposition home or self-care (01) ==
PROVIDERS: Emergency Provider Emergency Medicine; PCP Internal Medicine Geriatric Medicine
DX: S96.911A Strain of unspecified muscle and tendon at ankle and foot level, right foot, initial encounter (principal); W01.0XXA Fall on same level from slipping, tripping and stumbling without subsequent striking against object, initial encounter; I10 Essential (primary) hypertension; I25.10 Atherosclerotic heart disease of native coronary artery without angina pectoris; E78.00 Pure hypercholesterolemia, unspecified; Z87.891 Personal history of nicotine dependence
CPT/HCPCS: 73630; 99283